=== PATIENT | female | born 1975 | race Caucasian/White ===

== ENCOUNTER 2024-06-01 00:48 | Emergency (ER) | payer MEDICAID ==
[~2024-06-01] VITALS: Ht 157.5 cm; Wt 59.0 kg
[2024-06-01 00:51] VITALS: TEMP 36.4; O2SAT 100
[2024-06-01] MEDS ORDERED: OXYTOCIN 30 UNITS/500ML NS 500 ML IV ONE (02:15)
[2024-06-01] MEDS ORDERED: MORPHINE SULFATE 4 MG/ML INJ (FOR IV/IM USE) IV ONE (02:15)
[2024-06-01 02:46] LABS: BASOPHILS % 0.6 % (0.0-2.0); DIFFERENTIAL COMMENT 0; EOSINOPHILS % 0.3 % (0.0-5.0); HEMATOCRIT. 34.6 % (36.0-48.0); HEMOGLOBIN. 11.3 g/dL (12.0-16.0); LYMPHOCYTES % 25.1 % (20.0-50.0); MEAN CORPUSCULAR HEMOGLOBIN 24.2 pg (28.0-32.0); MEAN CORPUSCULAR HGB CONC 32.7 g/dL (31.0-37.0); MEAN PLATELET VOLUME 8.3 fl (7.4-10.4); MONOCYTES % 4.8 % (2.0-8.0); NEUTROPHILS % 69.2 % (40.0-76.0); PLATELET 303 x1000/uL (130-400); RED BLOOD CELL COUNT 4.67 mill/uL (4.2-5.4); RED CELL DISTRIBUTION WIDTH 14.9 % (11.6-14.6); WHITE BLOOD COUNT 7.6 x1000/uL (4.5-11.0)
[2024-06-01 02:52] LABS: CHLORIDE 110 mEq/L (98-107); POTASSIUM 3.7 mEq/L (3.5-5.1); SODIUM 142 mEq/L (136-145)
[2024-06-01 02:53] LABS: CARBON DIOXIDE 24 mEq/L (21-32)
[2024-06-01] MEDS: MAGNESIUM/ALUMINUM HYDROXIDE/SIMETHICONE 30ML UDC PO STA (02:53)
[2024-06-01] MEDS: ONDANSETRON HCL 4MG/2ML INJ IV STA (02:53)
[2024-06-01 02:54] LABS: CALCIUM 8.7 mg/dL (8.7-10.4)
[2024-06-01] MEDS: KETOROLAC 30MG/ML VIAL IV STA (02:54)
[2024-06-01] MEDS: SODIUM CHLORIDE 0.9% 1,000 ML IV ONE (02:55)
[2024-06-01 02:58] LABS: CREATININE 0.5 mg/dL (0.6-1.0); GLUCOSE 124 mg/dL (70-105); PROTHROMBIN TIME 10.6 sec (9.6-11.0)
[2024-06-01 02:59] LABS: UREA NITROGEN BLOOD 8 mg/dL (9-23)
[2024-06-01 03:00] LABS: ALANINE AMINOTRANSFERASE 10 IU/L (10-49); ALBUMIN 4.4 g/dL (3.2-4.8); ASPARTATE AMINOTRANSFERASE 20 IU/L (<34)
[2024-06-01 03:01] LABS: BILIRUBIN DIRECT < 0.1 mg/dL (<=3.0); BILIRUBIN TOTAL 0.3 mg/dL (0.1-1.0); HCG SCREEN NEGATIVE; PROTEIN TOTAL 7.6 g/dL (6.0-8.3)
[2024-06-01 03:29] LABS: CLARITY URINE CLEAR (CLEAR); COLOR URINE YELLOW (YELLOW); GLUCOSE URINE NEGATIVE (NEGATIVE); KETONES URINE NEGATIVE (NEGATIVE); LEUKOCYTE ESTERASE URINE NEGATIVE (NEGATIVE); NITRITE URINE NEGATIVE (NEGATIVE); OCCULT BLOOD URINE NEGATIVE (NEGATIVE); PH URINE 7.5 (4.5-8.0); PROTEIN URINE NEGATIVE (NEGATIVE); SPECIFIC GRAVITY URINE 1.008 (1.005-1.030); UROBILINOGEN URINE 0.2 E.U./dL (0.2-1.0)
[2024-06-01] MEDS ORDERED: NAPR-1486 MT (05:37)
[2024-06-01] MEDS ORDERED: ONDA-239 PO (05:37)
[2024-06-01] MEDS ORDERED: FAMO20TA8 MT (05:37)
[2024-06-01] MEDS ORDERED: MAG-55 MT (05:37)
[2024-06-01 06:01] VITALS: BP 128/55; PULSE 97; RESP 15; O2SAT 96
== END 2024-06-01 06:18 | disposition home or self-care (01) ==
LOC: ER 00:48
DX: R11.2 Nausea with vomiting, unspecified (principal); I10 Essential (primary) hypertension; Z79.899 Other long term (current) drug therapy
CPT/HCPCS: 99285; 96374; 96361; 96375; 80076; 80048; 81003; 84703; 83690; 85025; 85610; 36415; J1885; J2405; J7030; J2590